=== PATIENT | female | born 1995 | race American Indian/Alaskan Native ===

== ENCOUNTER 2018-11-28 21:45 | Emergency (ER) | payer SELFPAY ==
--- NOTE | 2018-11-28 22:58 | RAD REPORT ---
EXAM DESCRIPTION: RAD - Knee Left 3 View - 11/28/2018 10:42 pm CLINICAL HISTORY: fall, knee pain COMPARISON: No comparisons FINDINGS: A small to moderate suprapatellar joint effusion is seen. There is mild bony irregularity/ fragmentation seen along the inferior margin of the patella articular surface. This finding would be cold represent a subtle fracture. Recommend CT imaging of the left knee for further assessment.
--- NOTE | 2018-11-28 23:32 | EDPHYS ---
Physician Documentation [facility] Name: Jolene Johnson Age: 23 yrs Sex: Female : 1995 Arrival Date: 11/28/2018 Time: 21:49 Bed 14 Private MD: ED Physician Azeem Wood HPI: 11/28 22:22 This 23 yrs old Female presents to ER via Ambulatory with complaints of jmm Fall Injury. 22:22 Details of fall: The patient fell from an upright position. Onset: The symptoms/episode jmm began/occurred acutely, this morning. Associated injuries: The patient sustained. This is a 23 year old male with no chronic medical conditions that presents to the ED with complaints of left knee pain after tripping and falling directly on the knee. Complains of pain to the left anteromedial region. Denies other injury. . 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 - Social history:: Smoking status: Patient uses tobacco products, denies chronic smoking, but will smoke occasionally, Patient/guardian denies using alcohol, street drugs, IV drugs. - Ebola Screening: : No symptoms or risks identified at this time. ROS: 22:22 Constitutional: Negative for fever, chills, and weight loss, Cardiovascular: Negative jmm for chest pain, palpitations, and edema, Respiratory: Negative for shortness of breath, cough, wheezing, and pleuritic chest pain. 22:22 MS/extremity: Positive for injury or acute deformity. 22:22 All other systems are negative. Exam: 22:22 Constitutional: This is a well developed, well nourished patient who is awake, alert, jmm and in no acute distress. Head/Face: atraumatic. Eyes: EOMI, no conjunctival erythema appreciated ENT: Moist Mucus Membranes Neck: Trachea midline, Supple Chest/axilla: Normal chest wall appearance and motion. Cardiovascular: Regular rate and rhythm. No edema appreciated Respiratory: Normal respirations, no respiratory distress appreciated Abdomen/GI: Non distended, soft Back: Normal ROM Skin: General appearance color normal 22:22 Musculoskeletal/extremity: swelling noted to the left knee, pain on palpation of the left anteromedial region, full passive ROM appreciated, compartments are soft, full dorsalis pulse/ . 22:22 Skin: Appearance: Color: normal in color. 22:22 Neuro: Orientation: is normal, Mentation: is normal, Memory: is normal. 22:22 Psych: Behavior/mood is pleasant, cooperative. Vital Signs: 21:56 BP 132 / 95; Pulse 89; Resp 18; Temp 98.2; Pulse Ox 100% on R/A; Weight 90 kg; Height 5 mg2 ft. 6 in. (167.64 cm); Pain 8/10; 21:56 Body Mass Index 32.02 (90.00 kg, 167.64 cm) mg2 Procedures: 23:30 Splinting: Splint applied to left leg using knee immobilizer, Examined by me, post [facility] splint application: neurovascular intact, 2+ distal pulses palpable, brisk capillary refill noted, Patient tolerated well. MDM: 22:21 Patient medically screened. [facility] 23:30 Data reviewed: vital signs, nurses notes. Counseling: I had a detailed discussion with [facility] the patient and/or guardian regarding: the historical points, exam findings, and any diagnostic results supporting the discharge/admit diagnosis, radiology results, the need for outpatient follow up, to return to the emergency department if symptoms worsen or persist or if there are any questions or concerns that arise at home. 11/28 22:21 Order name: Knee Left 3 View XRAY; Complete Time: 23:28 [facility] 11/28 22:58 Order name: Knee Immobilizer; Complete Time: 23:27 [facility] Administered Medications: No medications were administered Disposition: 11/29 06:31 Co-signature as Attending Physician, Azeem Wood MD Available for consultation at ps1 all times . Disposition: 11/28/18 23:31 Discharged to Home. Impression: Patellar Fracture. - Condition is Stable. - Discharge Instructions: Patellar Fracture, Adult. - Medication Reconciliation Form, Thank You Letter, Antibiotic Education, Prescription Opioid Use form. - Follow up: Onur Burnett MD; When: 2 - 3 days; Reason: Recheck today's complaints, Continuance of care, Re-evaluation by your physician. Signatures: Dispatcher [employer] EDMS Neftali Camacho PA PA jmm Garcia, Heidy, RN RN lp1 Azeem Wood MD MD ps1 Jan Schmid, RN RN mg2 Corrections: (The following items were deleted from the chart) 11/28 23:41 23:31 11/28/2018 23:31 Discharged to Home. Impression: Patellar Fracture. Condition is lp1 Stable. Forms are Medication Reconciliation Form, Thank You Letter, Antibiotic Education, Prescription Opioid Use. Follow up: Dr. Onur Burnett; When: 2 - 3 days; Reason: Recheck today's complaints, Continuance of care, Re-evaluation by your physician. rah
--- NOTE | 2018-11-28 23:32 | ER ---
Nurse's Notes [facility] Name: Jolene Johnson Age: 23 yrs Sex: Female : 1995 Arrival Date: 11/28/2018 Time: 21:49 Bed 14 Private MD: Diagnosis: Patellar Fracture Presentation: 11/28 21:52 Presenting complaint: Patient states: i was walking down the stairs and i tripped and mg2 landed on my left knee \T\ 0500H. i was icing it since then . swelling subsided. Care prior to arrival: None. Mechanism of Injury: Fall from ladder. 21:52 Acuity: DEVON 4 mg2 21:52 Method Of Arrival: Ambulatory mg2 22:12 Transition of care: patient was not received from another setting of care. Onset of lp1 symptoms was November 28, 2018. Risk Assessment: Do you want to hurt yourself or someone else? Patient reports no desire to harm self or others. Initial Sepsis Screen: Does the patient meet any 2 criteria? No. Patient's initial sepsis screen is negative. Does the patient have a suspected source of infection? No. Patient's initial sepsis screen is negative. 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 - Social history:: Smoking status: Patient uses tobacco products, denies chronic smoking, but will smoke occasionally, Patient/guardian denies using alcohol, street drugs, IV drugs. - Ebola Screening: : No symptoms or risks identified at this time. Screenin:11 Abuse screen: Denies threats or abuse. Denies injuries from another. Nutritional lp1 screening: No deficits noted. Tuberculosis screening: No symptoms or risk factors identified. Fall Risk None identified. Assessment: 22:10 General: Appears in no apparent distress. Behavior is appropriate for age. Pain: lp1 Complains of pain in left knee Pain currently is 8 out of 10 on a pain scale. Quality of pain is described as aching, Alleviated by rest, cold application, Aggravated by increased activity, weight bearing. Neuro: Level of Consciousness is awake, alert, obeys commands. Cardiovascular: Patient's skin is warm and dry. Respiratory: Respiratory effort is even, unlabored. GI: No deficits noted. : No deficits noted. EENT: No deficits noted. Derm: Skin is pink, warm \T\ dry. Musculoskeletal: Swelling present in left knee. Vital Signs: 21:56 BP 132 / 95; Pulse 89; Resp 18; Temp 98.2; Pulse Ox 100% on R/A; Weight 90 kg; Height 5 mg2 ft. 6 in. (167.64 cm); Pain 8/10; 21:56 Body Mass Index 32.02 (90.00 kg, 167.64 cm) mg2 ED Course: 21:49 Patient arrived in ED. cf2 21:53 Neftali Camacho PA is PHCP. jmm 21:53 Azeem Wood MD is Attending Physician. m 21:55 Triage completed. mg2 21:57 Arm band placed on. mg2 22:09 Heidy Garcia, TIFFANIE is Primary Nurse. lp1 22:12 Patient has correct armband on for positive identification. lp1 22:41 X-ray completed. Portable x-ray completed in exam room. Patient tolerated procedure kw well. 22:43 Knee Left 3 View XRAY In Process Unspecified. EDMS 23:27 No provider procedures requiring assistance completed. Patient did not have IV access lp1 during this emergency room visit. Knee immobilizer applied on left knee. 23:31 Onur Burnett MD is Referral Physician. liam Administered Medications: No medications were administered Outcome: 23:31 Discharge ordered by . wesley 23:41 Discharged to home with family. lp1 23:41 Condition: good 23:41 Discharge instructions given to patient, Instructed on discharge instructions, follow up and referral plans. Demonstrated understanding of instructions, follow-up care. 23:41 Patient left the ED. lp1 Signatures: Dispatcher [employer] EDMS Mickail, CARMEN Lindsay Kimberlee kw Pena, Laura, RN RN lp1 Jan Schmid, RN RN mg2 Som, Trang 2
[2018-11-28 23:54] VITALS: BP 132/95; TEMP 98.2; O2SAT 100
== END 2018-11-28 23:41 | disposition home or self-care (01) ==
LOC: ER 21:45
PROC: 2W3MX1Z Immobilization of Left Lower Extremity using Splint (ICD-10-PCS; principal; 2018-11-28)
DX: S82.002A Unspecified fracture of left patella, initial encounter for closed fracture (principal); W01.0XXA Fall on same level from slipping, tripping and stumbling without subsequent striking against object, initial encounter; Y93.9 Activity, unspecified; Y92.9 Unspecified place or not applicable; Z72.0 Tobacco use
CPT/HCPCS: 99283